=== PATIENT | male | born 1965 | race Caucasian/White ===

== ENCOUNTER → 2017-03-31 | Outpatient (CLI) | payer OTHER ==
[2017-03-31 15:04] LABS: Blood Urea Nitrogen 27 mg/dL (9-20)
--- NOTE | 2017-03-31 15:49 | CT ---
EXAMINATION TYPE: CT abdomen wo/w con DATE OF EXAM: 03/31/2017 COMPARISON: NONE HISTORY: 52-year-old male with hematuria. TECHNIQUE: Contiguous axial scanning of the abdomen before and after administration of 100 ml Omnipaq ue 300 IV contrast. Delayed images through the kidneys and coronal/sagittal reconstructions performe d. CT DLP: 1836.3 mGycm Automated exposure control for dose reduction was used. FINDINGS: Heart normal size without pericardial effusion. Minimal strandy inferior lingular atelectasis and mil d strandy posterior right basilar atelectasis. No pleural effusion. No evidence for fatty infiltration of the liver. No focal liver lesion or biliary ductal dilatation. Portal venous system is patent. Gallbladder, adrenal glands, spleen, and pancreas appear within normal limits. Punctate 1 mm nonobstructive calculus mid to lower pole right kidney. Symmetric uptake and excretion of contrast from both kidneys. No suspicious renal lesion on either side. No dilated small bowel, free fluid, or free air. Normal appendix. Mild stool burden without pericolonic inflammatory change. 8 mm mik hepatic lymph node nonspecific, likely reactive. Otherwise, no mesenteric or retroperitone al lymphadenopathy. Bones: No osseous destructive process. IMPRESSION: PUNCTATE 1 MM NONOBSTRUCTIVE RIGHT RENAL CALCULUS. NO SUSPICIOUS RENAL LESION OR HYDRONEPHROSIS.
== END | disposition home or self-care (01) ==
LOC: RADCTMAIN 14:20
PROVIDERS: ATTEND Family Medicine
DX: N20.0 Calculus of kidney (principal); Z88.0 Allergy status to penicillin
CPT/HCPCS: 82565; 84520; 74170; 36415; Q9967

== ENCOUNTER → 2017-04-27 | Outpatient (CLI) | payer OTHER ==
--- NOTE | 2017-04-27 17:33 | CT ---
EXAMINATION TYPE: CT abdomen pelvis wo con DATE OF EXAM: 04/27/2017 COMPARISON: Previous exam 03/31/2017 CT abdomen HISTORY: Bilateral flank pain and hematuria. CT DLP: 1105 mGycm Automated exposure control for dose reduction was used. TECHNIQUE: Helical acquisition of images from the lung bases through the pelvis. FINDINGS: Lack of contrast could compromise sensitivity LUNG BASES: No significant abnormality is appreciated. AORTA: No significant abnormality is appreciataed. LIVER/GB: No significant abnormality is appreciated. PANCREAS: No significant abnormality is seen. SPLEEN: No significant abnormality is seen. ADRENALS: No significant abnormality is seen. KIDNEYS: Punctate calcification compatible with nonobstructive calculus within the right kidney is ag ain noted there is no evident ureteral calcification bilaterally, no hydronephrosis. REPRODUCTIVE ORGANS: There is some calcification associated with the prostate gland, somewhat nodula r appearance is noted anteriorly URINARY BLADDER: Shows a thickened wall. BOWEL: No significant abnormality is seen. FREE AIR: No Free Air is visible. ASCITES: None visible. PELVIC ADENOPATHY: None visualized. RETROPERITONEAL ADENOPATHY: No Retroperitoneal Adenopathy visible. OSSEOUS STRUCTURES: No significant abnormality is seen. Right inguinal hernia containing fat is suspected greater than on the left. IMPRESSION: NONOBSTRUCTIVE RIGHT RENAL CALCULUS. BLADDER WALL THICKENING COULD BE DUE TO CHRONIC OUTLET OBSTRUCTI ON. FINDINGS SUSPICIOUS FOR PROSTATE NODULE. NONCONTRAST EXAM.
== END | disposition home or self-care (01) ==
LOC: RADCTMAIN 16:01
PROVIDERS: ATTEND Urology
DX: N20.0 Calculus of kidney (principal); N32.89 Other specified disorders of bladder
CPT/HCPCS: 74176

== ENCOUNTER 2017-10-01 10:50 | Emergency (ER) | payer BC, OTHER ==
[2017-10-01] MEDS ORDERED: ASPIRIN 325 MG TAB PO STA (11:36)
[2017-10-01] MEDS ORDERED: BENZONATATE 100 MG CAP PO STA (11:36)
[2017-10-01] MEDS ORDERED: methylPREDNISolone SOD SUCCI 125 MG/2 ML VIAL IV STA (11:37)
[2017-10-01] MEDS ORDERED: SODIUM CHLORIDE 0.9% 1,000 ML IV ONE (11:37)
[2017-10-01] MEDS ORDERED: KETOROLAC 30 MG/ML 1 ML VIAL IVP STA (11:37)
[2017-10-01] MEDS ORDERED: IPRATROPIUM-ALBUTEROL 3 ML NEB INHALATION STA (11:37)
--- NOTE | 2017-10-01 11:40 | ED ---
General Adult HPI - General Chief complaint: Shortness of Breath Stated complaint: Difficulty Breathing Time Seen by Provider: 10/01/17 11:24 Source: patient Mode of arrival: ambulatory Limitations: no limitations - History of Present Illness Initial comments: 52-year-old male presenting with 2 weeks of productive cough, chest pain, subjective fevers, and hoarse voice. He states he saw his physician on Monday placed on an antibiotic for 10 days. He states he has been taking up his symptoms do not improve. States he is having posttussive emesis worsening substernal chest pain that radiates around to his sides when he coughs. Patient denies history of COPD but states he is an active smoker. Denies history of DVT PE, active cancer, recent surgeries, prolonged immobilization. - Related Data Previous Rx's Medication Instructions Recorded Albuterol Inhaler [Ventolin Hfa 1 - 2 puff INHALATION Q6HR PRN #1 10/01/17 Inhaler] inhaler Benzonatate [Tessalon Perles] 200 mg PO Q6HR PRN #20 capsule 10/01/17 predniSONE [Deltasone] 40 mg PO DAILY 5 Days #5 tablet 10/01/17 Allergies Allergy/AdvReac Type Severity Reaction Status Date / Time ketchup Allergy Unknown Verified 10/01/17 11:14 Penicillins Allergy Unknown Verified 10/01/17 11:14 Review of Systems ROS Statement: Those systems with pertinent positive or pertinent negative responses have been documented in the HPI. Review of Systems Constitutional: Denies fever, chills Eyes: Denies change in vision, Denies pain Ears, nose, mouth, throat: Denies headaches, Denies sore throat Cardiovascular: Positive chest pain. Denies palpitations Respiratory: Positive shortness of breath, Positive cough Gastrointestinal: Denies abdominal pain. Denies nausea, vomiting, diarrhea. Genitourinary: Denies hematuria, Denies infections Musculoskeletal: Denies pain, Denies swelling Integumentary: Denies rash Neurological: Denies headache, focal weakness, focal numbness Psychiatric: Denies anxiety, Denies depression Hematologic/Lymphatic: Denies easy bleeding or bruising ROS Other: All systems not noted in ROS Statement are negative. Past Medical History Past Medical History: Coronary Artery Disease (CAD), Diabetes Mellitus, Hyperlipidemia, Hypertension, Myocardial Infarction (non Q-wave) History of Any Multi-Drug Resistant Organisms: None Reported Past Surgical History: Orthopedic Surgery Past Psychological History: No Psychological Hx Reported Smoking Status: Current every day smoker Past Alcohol Use History: None Reported Past Drug Use History: None Reported General Exam - General Exam Comments Initial Comments: General: Awake, alert, No acute Distress HENT: Normocephalic. Atraumatic. Erythematous oropharnyx without exudate. Eyes: PERRL. EOMI. No scleral icterus. No injected conjunctiva Neck: Full ROM Chest/Lungs: Diffuse wheezes bilaterally Cardiac: Regular rate, rhythm. No murmurs or rubs Abdomen/GI: [Soft, nontender, nondistended. No rebound, guarding, or rigidity. Musculoskeletal: Full ROM Skin: Warm, dry, intact Neurologic: A/Ox3, no weakness, no sensory deficit, no abdnormal gait, no coordination deficit Limitations: no limitations Course Vital Signs 10/01/17 10/01/17 10/01/17 11:10 12:21 12:30 Temperature 98.7 F Pulse Rate 77 78 80 Respiratory 22 Rate Blood Pressure 134/76 O2 Sat by Pulse 97 Oximetry 10/01/17 13:46 Temperature 98.2 F Pulse Rate 69 Respiratory 18 Rate Blood Pressure 133/83 O2 Sat by Pulse 94 L Oximetry Medical Decision Making - Medical Decision Making 52-year-old male presenting with shortness of breath, cough, subjective fevers. Initial exam the patient is awake, alert, no acute distress. VSS. Patient has diffuse wheezing. Patient has no history of DVT PE, risk factors, lower extremity swelling, nor is he tachycardic or hypoxic. Patient's clinical presentation consistent with acute bronchitis and COPD exacerbation as the patient is a current smoker. Patient's pain only occurs while he is coughing at this time is not suggestive of something more serious such as ACS. Troponin is negative. Heart score 3. EKG showed normal sinus rhythm at a rate of [address] segment elevation or depression. Patient's symptoms improved while in department. He was instructed to continue taking his antibiotics prescribed by his primary care physician.No further emergent workup indicated. The patient was given return to ED instructions. They were instructed to follow up with their primary care provider. Stable for discharge at this time. - Lab Data Result diagrams: 10/01/17 12:12 10/01/17 12:12 Lab Results 0710/01/17 10/01/17 Range/Units 12:12 12:12 12:12 WBC 8.2 (3.8-10.6) k/uL RBC 5.30 (4.30-5.90) m/uL Hgb 16.2 (13.0-17.5) gm/dL Hct 46.5 (39.0-53.0) % MCV 87.7 (80.0-100.0) fL MCH 30.5 (25.0-35.0) pg MCHC 34.8 (31.0-37.0) g/dL RDW 13.5 (11.5-15.5) % Plt Count 262 (150-450) k/uL Neutrophils % 67 % Lymphocytes % 19 % Monocytes % 9 % Eosinophils % 3 % Basophils % 1 % Neutrophils # 5.5 (1.3-7.7) k/uL Lymphocytes # 1.5 (1.0-4.8) k/uL Monocytes # 0.7 (0-1.0) k/uL Eosinophils # 0.2 (0-0.7) k/uL Basophils # 0.1 (0-0.2) k/uL Sodium 140 (137-145) mmol/L Potassium 4.9 (3.5-5.1) mmol/L Chloride 106 (98-107) mmol/L Carbon Dioxide 27 (22-30) mmol/L Anion Gap 7 mmol/L BUN 15 (9-20) mg/dL Creatinine 0.69 (0.66-1.25) mg/dL Est GFR (CKD-EPI)AfAm >90 (>60 ml/min/1.73 sqM) Est GFR (CKD-EPI)NonAf >90 (>60 ml/min/1.73 sqM) Glucose 145 H (74-99) mg/dL Calcium 9.6 (8.4-10.2) mg/dL Troponin I (0.000-0.034) ng/mL NT-Pro-B Natriuret Pep 176 pg/mL 10/01/17 Range/Units 12:12 WBC (3.8-10.6) k/uL RBC (4.30-5.90) m/uL Hgb (13.0-17.5) gm/dL Hct (39.0-53.0) % MCV (80.0-100.0) fL MCH (25.0-35.0) pg MCHC (31.0-37.0) g/dL RDW (11.5-15.5) % Plt Count (150-450) k/uL Neutrophils % % Lymphocytes % % Monocytes % % Eosinophils % % Basophils % % Neutrophils # (1.3-7.7) k/uL Lymphocytes # (1.0-4.8) k/uL Monocytes # (0-1.0) k/uL Eosinophils # (0-0.7) k/uL Basophils # (0-0.2) k/uL Sodium (137-145) mmol/L Potassium (3.5-5.1) mmol/L Chloride (98-107) mmol/L Carbon Dioxide (22-30) mmol/L Anion Gap mmol/L BUN (9-20) mg/dL Creatinine (0.66-1.25) mg/dL Est GFR (CKD-EPI)AfAm (>60 ml/min/1.73 sqM) Est GFR (CKD-EPI)NonAf (>60 ml/min/1.73 sqM) Glucose (74-99) mg/dL Calcium (8.4-10.2) mg/dL Troponin I <0.012 (0.000-0.034) ng/mL NT-Pro-B Natriuret Pep pg/mL Disposition Clinical Impression: Acute exacerbation of chronic obstructive airways disease Disposition: HOME SELF-CARE Condition: Good Instructions: Acute Bronchitis (ED), Chronic Bronchitis (ED) Prescriptions: Albuterol Inhaler [Ventolin Hfa Inhaler] 1 - 2 puff INHALATION Q6HR PRN #1 inhaler PRN Reason: Shortness Of Breath Or Wheezing Benzonatate [Tessalon Perles] 200 mg PO Q6HR PRN #20 capsule PRN Reason: Cough predniSONE [Deltasone] 40 mg PO DAILY 5 Days #5 tablet Is patient prescribed a controlled substance at d/c from ED?: No
[2017-10-01 12:31] LABS: Basophils # (A) 0.1 k/uL (0-0.2); Basophils % (A) 1 %; Eosinophils # (A) 0.2 k/uL (0-0.7); Eosinophils % (A) 3 %; HCT 46.5 % (39.0-53.0); HGB 16.2 gm/dL (13.0-17.5); Lymphocytes # (A) 1.5 k/uL (1.0-4.8); Lymphocytes % (A) 19 %; MCH 30.5 pg (25.0-35.0); MCHC 34.8 g/dL (31.0-37.0); MCV 87.7 fL (80.0-100.0); Mean Platelet Volume 7.4; Monocytes # (A) 0.7 k/uL (0-1.0); Monocytes % (A) 9 %; Neutrophils # (A) 5.5 k/uL (1.3-7.7); Neutrophils % (A) 67 %; Platelet Count 262 k/uL (150-450); RDW 13.5 % (11.5-15.5); WBC 8.2 k/uL (3.8-10.6)
[2017-10-01 12:36] LABS: Anion Gap 7 mmol/L; Calcium 9.6 mg/dL (8.4-10.2); Carbon Dioxide 27 mmol/L (22-30); Chloride 106 mmol/L (98-107); Glucose 145 mg/dL (74-99); Sodium 140 mmol/L (137-145)
[2017-10-01 12:38] LABS: Blood Urea Nitrogen 15 mg/dL (9-20); Potassium 4.9 mmol/L (3.5-5.1)
--- NOTE | 2017-10-01 13:28 | XR ---
EXAMINATION TYPE: XR chest 2V DATE OF EXAM: 10/01/2017 HISTORY: Pain. REFERENCE: NONE. FINDINGS: The lungs are clear. Pleural space are clear. The heart is not enlarged. IMPRESSION: NO ACUTE CARDIOPULMONARY ABNORMALITY.
[2017-10-01 13:49] VITALS: RESP 18
[2017-10-01 14:52] VITALS: BP 143/87; PULSE 79; TEMP 98.3
== END 2017-10-01 14:52 | disposition home or self-care (01) ==
LOC: EC 10:50
DX: J44.1 Chronic obstructive pulmonary disease with (acute) exacerbation (principal); I25.10 Atherosclerotic heart disease of native coronary artery without angina pectoris; E11.9 Type 2 diabetes mellitus without complications; E78.5 Hyperlipidemia, unspecified; I10 Essential (primary) hypertension; I25.2 Old myocardial infarction; F17.200 Nicotine dependence, unspecified, uncomplicated; Z88.0 Allergy status to penicillin; Z91.018 Allergy to other foods
CPT/HCPCS: 36415; 94640; 93005; 83880; 80048; 84484; 85025; 71046; 99285; 96374; 96375; 96361; J2930; J1885

== ENCOUNTER 2019-04-25 14:46 | Emergency (ER) | payer BC, OTHER ==
[2019-04-25 14:49] VITALS: BP 153/96; PULSE 97; RESP 16; TEMP 97.4
--- NOTE | 2019-04-25 15:00 | ED ---
Skin/Abscess/FB HPI - General Chief complaint: Skin/Abscess/Foreign Body Stated complaint: infection in hand Time Seen by Provider: 04/25/19 14:50 Source: patient, RN notes reviewed Mode of arrival: ambulatory Limitations: no limitations - History of Present Illness Initial comments: 54-year-old male presents emergency department Department with chief complaint of right hand injury. Patient is approximately one week ago he pinched in a snowblower states that it was small open wound states there was nothing worrisome. Patient states recently last 3-4 days she's had increased swelling, redness. Patient states he has full range of motion of all digits no fevers or chills no pain in his forearm. - Related Data Previous Rx's Medication Instructions Recorded Albuterol Inhaler [Ventolin Hfa 1 - 2 puff INHALATION Q6HR PRN #1 10/01/17 Inhaler] inhaler Benzonatate [Tessalon Perles] 200 mg PO Q6HR PRN #20 capsule 10/01/17 predniSONE [Deltasone] 40 mg PO DAILY 5 Days #5 tablet 10/01/17 Cephalexin [Keflex] 500 mg PO Q6HR #40 cap 04/25/19 Ibuprofen [Motrin] 600 mg PO Q8HR PRN #30 tab 04/25/19 Sulfamethox-Tmp 800-160Mg [Bactrim 1 each PO Q12HR #20 tab 04/25/19 Ds] Allergies Allergy/AdvReac Type Severity Reaction Status Date / Time ketchup Allergy Unknown Verified 04/25/19 14:49 Penicillins Allergy Unknown Verified 04/25/19 14:49 Review of Systems ROS Statement: Those systems with pertinent positive or pertinent negative responses have been documented in the HPI. ROS Other: All systems not noted in ROS Statement are negative. Past Medical History Past Medical History: Coronary Artery Disease (CAD), Diabetes Mellitus, Hyperlipidemia, Hypertension, Myocardial Infarction (non Q-wave) History of Any Multi-Drug Resistant Organisms: None Reported Past Surgical History: Orthopedic Surgery Past Psychological History: No Psychological Hx Reported Smoking Status: Current every day smoker Past Alcohol Use History: None Reported Past Drug Use History: None Reported General Exam Limitations: no limitations General appearance: alert, in no apparent distress Head exam: Present: atraumatic, normocephalic, normal inspection Eye exam: Present: normal appearance, PERRL, EOMI. Absent: scleral icterus, conjunctival injection, periorbital swelling Respiratory exam: Present: normal lung sounds bilaterally. Absent: respiratory distress, wheezes, rales, rhonchi, stridor Cardiovascular Exam: Present: regular rate, normal rhythm, normal heart sounds. Absent: systolic murmur, diastolic murmur, rubs, gallop, clicks Extremities exam: Present: other (Right hand there is moderate swelling, erythema between the first and second digit on the dorsal aspect, there is small abrasion over the third MCP region there is tenderness with palpation to the dorsal aspect of the hand there is no tenderness of the mid forearm no epitrochlear or axilla lymph nodes palpable) Neurological exam: Present: alert Skin exam: Present: warm, dry, intact, normal color. Absent: rash Course Vital Signs 04/25/19 14:47 Temperature 97.4 F L Pulse Rate 97 Respiratory 16 Rate Blood Pressure 153/96 O2 Sat by Pulse 96 Oximetry Procedures - Incision & Drainage Consent Obtained: verbal consent Site: hand (Right hand) Size (cm): 2 I&D Cleaning Method: Alcohol Wipe Sterile Field Used?: No Needle Aspiration Performed?: Yes Irrigation Performed?: No I&D Drainage Obtained: Pus, Blood Culture Obtained?: Yes Patient Tolerated Procedure: well, no complications Medical Decision Making - Medical Decision Making 54-year-old presented for right hand pain, swelling or there is evidence of cellulitis changes. There is small mild purulent drainage removed. Patient's x-ray does not show any acute findings. Patient we discharged on antibiotics with close follow-up. Disposition Clinical Impression: Cellulitis of right hand Disposition: HOME SELF-CARE Condition: Stable Instructions (If sedation given, give patient instructions): Cellulitis (ED) Additional Instructions: Please return to the Emergency Department if symptoms worsen or any other concerns. Prescriptions: Sulfamethox-Tmp 800-160Mg [Bactrim Ds] 1 each PO Q12HR #20 tab Cephalexin [Keflex] 500 mg PO Q6HR #40 cap Ibuprofen [Motrin] 600 mg PO Q8HR PRN #30 tab PRN Reason: Pain Is patient prescribed a controlled substance at d/c from ED?: No Referrals: Tom Cooper MD [Primary Care Provider] - 1-2 days Time of Disposition: 15:19
[2019-04-25] MEDS ORDERED: traMADol 50 MG STARTER PACK 3 TAB BTL PO STA (15:16)
--- NOTE | 2019-04-25 15:20 | XR ---
EXAMINATION TYPE: XR hand complete RT DATE OF EXAM: 04/25/2019 CLINICAL HISTORY: Right hand pain and swelling with laceration to the thumb. TECHNIQUE: Frontal, lateral and oblique images of the right hand are obtained. COMPARISON: None. FINDINGS: There is no acute fracture/dislocation evident in the right hand. The joint spaces in the right hand appear aligned with minimal degenerative change demonstrated as osseous hypertrophic nettles e at the distal interphalangeal joints and first carpometacarpal joint. Subcortical cyst of the dista l ulna.. No radiopaque foreign body. The overlying soft tissue appears unremarkable. IMPRESSION: There is no acute fracture or dislocation in the right hand. No radiopaque foreign jeni s.
== END 2019-04-25 15:50 | disposition home or self-care (01) ==
LOC: EC 14:46
DX: L03.113 Cellulitis of right upper limb (principal); I25.10 Atherosclerotic heart disease of native coronary artery without angina pectoris; E11.9 Type 2 diabetes mellitus without complications; I10 Essential (primary) hypertension; I25.2 Old myocardial infarction; F17.200 Nicotine dependence, unspecified, uncomplicated; Z88.0 Allergy status to penicillin; Z91.018 Allergy to other foods
CPT/HCPCS: 10160; 87070; 87077; 87186; 87205; 99283

== ENCOUNTER 2020-01-15 21:46 | Inpatient (IN) | payer OTHER ==
[2020-01-15] MEDS ORDERED: MORPHINE SULFATE 4 MG/ML SYRINGE IV STA (22:19)
[2020-01-15] MEDS ORDERED: SODIUM CHLORIDE 0.9% 500 ML 500 ML IV STA (22:19)
[2020-01-15 22:37] LABS: Basophils # (A) 0.1 k/uL (0-0.2); Basophils % (A) 1 %; Eosinophils # (A) 0.1 k/uL (0-0.7); Eosinophils % (A) 1 %; HCT 46.8 % (39.0-53.0); HGB 15.6 gm/dL (13.0-17.5); Lymphocytes # (A) 1.1 k/uL (1.0-4.8); Lymphocytes % (A) 12 %; MCH 29.2 pg (25.0-35.0); MCHC 33.3 g/dL (31.0-37.0); MCV 87.6 fL (80.0-100.0); Mean Platelet Volume 8.1; Monocytes # (A) 0.7 k/uL (0-1.0); Monocytes % (A) 8 %; Neutrophils % (A) 76 %; Platelet Count 244 k/uL (150-450); RBC 5.34 m/uL (4.30-5.90); RDW 12.3 % (11.5-15.5); WBC 9.1 k/uL (3.8-10.6)
[2020-01-15 22:38] LABS: Appearance,Urine Clear (Clear); Bilirubin,Urine Negative (Negative); Blood,Urine Negative (Negative); Color,Urine Colorless; Glucose,Urine (UA) 4+ (Negative); Ketones,Urine Negative (Negative); Leukocyte Esterase,Urine Negative (Negative); Nitrite,Urine Negative (Negative); Protein,Urine Negative (Negative); Specific Gravity,Urine 1.008 (1.001-1.035); Urobilinogen,Urine <2.0 mg/dL (<2.0)
--- NOTE | 2020-01-15 22:40 | ED ---
Abdominal Pain HPI - General Chief Complaint: Abdominal Pain Stated Complaint: back & abd pain Time Seen by Provider: 01/15/20 22:01 Source: patient Mode of arrival: ambulatory Limitations: no limitations - History of Present Illness Initial Comments: this patient is a 55-year-old man who presents with left flank pain that radiates to the groin. He states this beengoing on for couple of days but much worse tonight. He has not discovered worsening or relieving factors. He does feel as if she needs to urinate very frequently. He has not noted any blood. The patient also feeling nausea but has not vomited. No change in bowel movements -: days(s) Severity: severe Quality: sharp Consistency: constant Improves With: nothing Worsens With: nothing - Related Data Previous Rx's Medication Instructions Recorded ALPRAZolam [Xanax] 0.25 mg PO BID PRN 3 Days #6 tab 01/17/20 DULoxetine HCL [Cymbalta] 60 mg PO DAILY #30 cap 01/17/20 INSULIN ASPART (NovoLOG) [NovoLOG 5 unit SQ AC-TID #5 vial 01/17/20 (formulary)] Insulin Glargine,Hum.rec.anlog 15 unit SQ DAILY #5 pen 01/17/20 [Lantus Solostar] Magnesium Oxide 400 mg PO DAILY #30 tablet 01/17/20 Tamsulosin [Flomax] 0.4 mg PO DAILY #30 cap.er.24h 01/17/20 Allergies Allergy/AdvReac Type Severity Reaction Status Date / Time ketchup Allergy Unknown Verified 01/15/20 23:15 Penicillins Allergy Unknown Verified 01/15/20 23:15 Review of Systems ROS Statement: Those systems with pertinent positive or pertinent negative responses have been documented in the HPI. ROS Other: All systems not noted in ROS Statement are negative. Constitutional: Denies: fever, chills Respiratory: Denies: cough, dyspnea Cardiovascular: Denies: chest pain, palpitations, edema Gastrointestinal: Reports: as per HPI, abdominal pain, nausea. Denies: vomiting, diarrhea, constipation Genitourinary: Reports: urgency, frequency, testicular pain. Denies: dysuria, hematuria, discharge Musculoskeletal: Reports: back pain Skin: Denies: rash Neurological: Denies: headache, weakness, numbness Past Medical History Past Medical History: Coronary Artery Disease (CAD), Diabetes Mellitus, Hyperlipidemia, Hypertension, Myocardial Infarction (non Q-wave) History of Any Multi-Drug Resistant Organisms: None Reported Past Surgical History: Orthopedic Surgery Past Psychological History: No Psychological Hx Reported Smoking Status: Current every day smoker Past Alcohol Use History: None Reported Past Drug Use History: None Reported General Exam Limitations: no limitations General appearance: alert, in no apparent distress Head exam: Present: atraumatic, normocephalic Eye exam: Present: normal appearance. Absent: scleral icterus, conjunctival injection ENT exam: Present: normal oropharynx Neck exam: Present: normal inspection, full ROM Respiratory exam: Present: normal lung sounds bilaterally. Absent: respiratory distress, wheezes, rales, rhonchi, stridor Cardiovascular Exam: Present: regular rate, normal rhythm, normal heart sounds. Absent: systolic murmur, diastolic murmur, rubs, gallop GI/Abdominal exam: Present: soft, tenderness, guarding. Absent: distended, r ebound, rigid, mass, pulsatile mass, hernia exam: Present: normal inspection, vertical testicular lie, circumcision. Absent: testicular tenderness, urethral discharge, scrotal swelling Extremities exam: Present: normal inspection, normal capillary refill. Absent: pedal edema, calf tenderness Back exam: Present: normal inspection. Absent: CVA tenderness (R), CVA tenderness (L) Neurological exam: Present: alert Skin exam: Present: warm, dry, intact, normal color. Absent: rash Course Vital Signs 01/15/20 01/15/20 01/15/20 21:47 22:31 23:27 Temperature 98.3 F Pulse Rate 94 89 Pulse Rate [ 91 Pulse Oximetery ] Respiratory 20 18 17 Rate Blood Pressure 155/90 141/97 Blood Pressure 142/101 [Left Arm] Blood Pressure 149/101 [Right Arm] O2 Sat by Pulse 96 96 96 Oximetry 01/15/20 01/16/20 01/16/20 23:53 00:43 01:14 Temperature 99.1 F Pulse Rate 86 86 94 Pulse Rate [ Pulse Oximetery ] Respiratory 18 18 18 Rate Blood Pressure 135/86 161/91 176/83 Blood Pressure [Left Arm] Blood Pressure [Right Arm] O2 Sat by Pulse 93 L 95 96 Oximetry 01/16/20 01:49 Temperature 97.6 F Pulse Rate Pulse Rate [ 86 Pulse Oximetery ] Respiratory 16 Rate Blood Pressure Blood Pressure [Left Arm] Blood Pressure 139/84 [Right Arm] O2 Sat by Pulse 99 Oximetry - Reevaluation(s) Reevaluation #1: 01/15/20 22:39 patient's 55-year-old man here to be evaluated for flank pain that radiates to the testicle. When I entered the room, he is sleeping comfortably. When the patient is noticed by his he began to writhe on the bed, then got up to go and urinate. Medical Decision Making - Lab Data Result diagrams: 01/15/20 22:25 01/17/20 03:55 Lab Results 01/15/20 01/15/20 01/15/20 Range/Units 22:25 22:25 22:25 WBC 9.1 (3.8-10.6) k/uL RBC 5.34 (4.30-5.90) m/uL Hgb 15.6 (13.0-17.5) gm/dL Hct 46.8 (39.0-53.0) % MCV 87.6 (80.0-100.0) fL MCH 29.2 (25.0-35.0) pg MCHC 33.3 (31.0-37.0) g/dL RDW 12.3 (11.5-15.5) % Plt Count 244 (150-450) k/uL Neutrophils % 76 % Lymphocytes % 12 % Monocytes % 8 % Eosinophils % 1 % Basophils % 1 % Neutrophils # 7.0 (1.3-7.7) k/uL Lymphocytes # 1.1 (1.0-4.8) k/uL Monocytes # 0.7 (0-1.0) k/uL Eosinophils # 0.1 (0-0.7) k/uL Basophils # 0.1 (0-0.2) k/uL Sodium 128 L (137-145) mmol/L Potassium 4.6 (3.5-5.1) mmol/L Chloride 97 L (98-107) mmol/L Carbon Dioxide 24 (22-30) mmol/L Anion Gap 7 mmol/L BUN 24 H (9-20) mg/dL Creatinine 1.96 H (0.66-1.25) mg/dL Est GFR (CKD-EPI)AfAm 43 (>60 ml/min/1.73 sqM) Est GFR (CKD-EPI)NonAf 37 (>60 ml/min/1.73 sqM) Glucose 589 H* (74-99) mg/dL POC Glucose (mg/dL) (75-99) mg/dL POC Glu Farm Owner Operator ID Plasma Lactic Acid Sarabjit (0.7-2.0) mmol/L Calcium 9.1 (8.4-10.2) mg/dL Total Bilirubin 0.7 (0.2-1.3) mg/dL AST 20 (17-59) U/L ALT 18 (4-49) U/L Alkaline Phosphatase 142 H (38-126) U/L Troponin I (0.000-0.034) ng/mL Total Protein 6.3 (6.3-8.2) g/dL Albumin 3.6 (3.5-5.0) g/dL Amylase 70 (30-110) U/L Lipase 361 H (23-300) U/L Urine Color Colorless Urine Appearance Clear (Clear) Urine pH 5.0 (5.0-8.0) Ur Specific [place] 1.008 (1.001-1.035) Urine Protein Negative (Negative) Urine Glucose (UA) 4+ H (Negative) Urine Ketones Negative (Negative) Urine Blood Negative (Negative) Urine Nitrite Negative (Negative) Urine Bilirubin Negative (Negative) Urine Urobilinogen <2.0 (<2.0) mg/dL Ur Leukocyte Esterase Negative (Negative) 01/15/20 01/15/20 01/16/20 Range/Units 22:25 22:25 00:59 WBC (3.8-10.6) k/uL RBC (4.30-5.90) m/uL Hgb (13.0-17.5) gm/dL Hct (39.0-53.0) % MCV (80.0-100.0) fL MCH (25.0-35.0) pg MCHC (31.0-37.0) g/dL RDW (11.5-15.5) % Plt Count (150-450) k/uL Neutrophils % % Lymphocytes % % Monocytes % % Eosinophils % % Basophils % % Neutrophils # (1.3-7.7) k/uL Lymphocytes # (1.0-4.8) k/uL Monocytes # (0-1.0) k/uL Eosinophils # (0-0.7) k/uL Basophils # (0-0.2) k/uL Sodium (137-145) mmol/L Potassium (3.5-5.1) mmol/L Chloride (98-107) mmol/L Carbon Dioxide (22-30) mmol/L Anion Gap mmol/L BUN (9-20) mg/dL Creatinine (0.66-1.25) mg/dL Est GFR (CKD-EPI)AfAm (>60 ml/min/1.73 sqM) Est GFR (CKD-EPI)NonAf (>60 ml/min/1.73 sqM) Glucose (74-99) mg/dL POC Glucose (mg/dL) 431 H (75-99) mg/dL POC Glu Farm Owner Operator ID [place] Plasma Lactic Acid Sarabjit 1.3 (0.7-2.0) mmol/L Calcium (8.4-10.2) mg/dL Total Bilirubin (0.2-1.3) mg/dL AST (17-59) U/L ALT (4-49) U/L Alkaline Phosphatase (38-126) U/L Troponin I 0.024 (0.000-0.034) ng/mL Total Protein (6.3-8.2) g/dL Albumin (3.5-5.0) g/dL Amylase (30-110) U/L Lipase (23-300) U/L Urine Color Urine Appearance (Clear) Urine pH (5.0-8.0) Ur Specific [place] (1.001-1.035) Urine Protein (Negative) Urine Glucose (UA) (Negative) Urine Ketones (Negative) Urine Blood (Negative) Urine Nitrite (Negative) Urine Bilirubin (Negative) Urine Urobilinogen (<2.0) mg/dL Ur Leukocyte Esterase (Negative) - EKG Data -: EKG Interpreted by Ms EKG shows normal: intervals (QRS duration 160 ms, consistent with paced rhythm. QTC 507 ms. ) Rate: normal (rate 82 bpm) Interpretation: other (the underlying rhythm appears to be ventricular paced rhythm with PVC) Disposition Clinical Impression: Acute kidney injury, Urinary retention, Hyperglycemia due to diabetes mellitus Disposition: ADMITTED IP TO THIS [facility] Condition: Fair
[2020-01-15 22:48] LABS: Albumin 3.6 g/dL (3.5-5.0); Calcium 9.1 mg/dL (8.4-10.2); Potassium 4.6 mmol/L (3.5-5.1); Total Bilirubin 0.7 mg/dL (0.2-1.3); Total Protein 6.3 g/dL (6.3-8.2)
[2020-01-15] MEDS ORDERED: INSULIN REGULAR 100 UNIT/ML VIAL SQ STA (23:11)
--- NOTE | 2020-01-15 23:26 | CT ---
EXAMINATION TYPE: CT abdomen pelvis wo con DATE OF EXAM: 01/15/2020 COMPARISON: 04/27/2017 HISTORY: abd and groin pain CT DLP: 631.9 mGycm Automated exposure control for dose reduction was used. Lung bases are clear. There is no pleural effusion. Heart size is normal. There is no pericardial eff usion. Liver spleen stomach pancreas gallbladder appear normal. Bile ducts are not dilated. There is no adrenal mass. Kidneys have normal size. There is bilateral hydronephrosis and hydroureter . I see no definite ureteral calculus. There is markedly dilated urinary bladder. Bladder measures 24 cm in length. Bladder extends up to the L3 level. There is no free fluid in the pelvis. There is lien ateral inguinal hernias that contain fat. Appendix is posterior and appears normal. There is no mesen teric edema. There is no ascites. There is no free air. There is distended gas-filled large bowel. Th ere is no evidence of free air. There is no ascites. Lumbar vertebra have normal alignment. There is no compression fracture. Posterior elements are intac t. Bony pelvis is intact. Hip joints are intact. IMPRESSION: Bilateral moderate hydronephrosis and hydroureter with markedly dilated urinary bladder. Hydronephros is probably related to chronic bladder outlet obstruction. Obstruction is new compared to old exam. Normal appendix. Mild large bowel ileus.
[2020-01-16] MEDS ORDERED: SODIUM CHLORIDE 0.9% 1,000 ML IV ONE ×2 (00:14→00:23)
[2020-01-16 01:01] LABS: Glucose,Whole Blood 431 mg/dL (75-99)
[2020-01-16] MEDS ORDERED: MORPHINE SULFATE 4 MG/ML SYRINGE IVP STA (01:13)
[2020-01-16] MEDS ORDERED: NALOXONE 0.4 MG/ML 1 ML VIAL IV PRN (01:19)
[2020-01-16] MEDS ORDERED: ACETAMINOPHEN TAB 325 MG TAB PO PRN (01:19)
[2020-01-16] MEDS ORDERED: ONDANSETRON 4 MG/2 ML VIAL IVP PRN (01:19)
[2020-01-16] MEDS ORDERED: SODIUM CHLORIDE 0.9% 1,000 ML IV SCH (01:30)
[2020-01-16 09:52] LABS: Glucose,Whole Blood 330 mg/dL (75-99)
[2020-01-16] MEDS: NICOTINE 21MG/24HR PATCH TRANSDERM SCH (10:46)
[2020-01-16 11:50] LABS: Glucose,Whole Blood 263 mg/dL (75-99)
--- NOTE | 2020-01-16 12:20 | P.NPCON ---
History of Present Illness - Reason for Consult acute renal failure - History of Present Illness Reason for consultation: Acute kidney injury History of present illness: Patient is a 55-year-old male seen in renal consultation for acute kidney injury. Patient's creatinine in September 2017 was 0.69 and this admission was 1.96. No other records available. Patient presented to the hospital due to difficulty with urination. Patient states the tingling over the last 1 week or so. He has the urge to void but only dribbles. Junior catheter was inserted in the ER and he was noted to have significant urinary retention. His urine output in the last 24 hours has been over 5 L. Denies hematuria or dysuria. No fever or chills. No vomiting or diarrhea. Appetite is fair. Denies use of nonsteroidals. Patient's blood sugar was 589 at admission. Patient states he was on metformin and glipizide at home but stopped taking them about a month ago. He has not been taking any medications for his diabetes. Blood pressure stable. He does feel thirsty. Denies family history of renal disease. Patient states he did have bladder tumors that were removed a few years ago. CT of the abdomen and pelvis did reveal bilateral hydronephrosis. Vital signs are stable. General: The patient appeared well nourished and normally developed. HEENT: Head exam is unremarkable. Neck is without jugular venous distension. LUNGS: Lungs are clear to auscultation and percussion. Breath sounds decreased. HEART: Rate and Rhythm are regular. ABDOMEN: Soft, nontender. EXTREMITITES: No clubbing, cyanosis, or edema. Past Medical History Past Medical History: Coronary Artery Disease (CAD), Diabetes Mellitus, Hyperlipidemia, Hypertension History of Any Multi-Drug Resistant Organisms: None Reported Past Surgical History: Orthopedic Surgery Past Psychological History: No Psychological Hx Reported Smoking Status: Current every day smoker Past Alcohol Use History: None Reported Past Drug Use History: None Reported Medications and Allergies Home Medications Medication Instructions Recorded Confirmed Type No Known Home Medications 01/15/20 01/15/20 History Allergies Allergy/AdvReac Type Severity Reaction Status Date / Time ketchup Allergy Unknown Verified 01/15/20 23:15 Penicillins Allergy Unknown Verified 01/15/20 23:15 Physical Exam Vitals: Vital Signs Temp Pulse Pulse Resp BP BP BP 01/16/20 11:23 98.1 F 89 18 93/50 1105/20 07:57 98.4 F 94 18 149/78 01/16/20 01:49 97.6 F 86 16 139/84 01/16/20 01:14 99.1 F 94 18 176/83 01/16/20 00:43 86 18 161/91 01/15/20 23:53 86 18 135/86 01/15/20 23:27 89 17 141/97 01/15/20 22:31 91 18 142/101 149/101 01/15/20 21:47 98.3 F 94 20 155/90 Pulse Ox 01/16/20 11:23 92 L 01/16/20 07:57 99 01/16/20 01:49 99 01/16/20 01:14 96 01/16/20 00:43 95 01/15/20 23:53 93 L 01/15/20 23:27 96 01/15/20 22:31 96 01/15/20 21:47 96 Intake and Output 01/15/20 01/16/20 01/16/20 22:59 06:59 14:59 Intake Total 840 Output Total 5800 1974 Balance -5800 -1135 Intake: Oral 840 Output: Urine 5800 1974 Uretheral (Junior) 900 Other: Voiding Method Indwelling Catheter Indwelling Catheter Weight 77.111 kg 77.111 kg Results - Lab Results Most recent lab results Calcium 9.1 mg/dL (8.4-10.2) 01/15/20 22:25 01/15/20 22:25 01/15/20 22:25 Assessment and Plan Plan: Assessment: 1. Acute kidney injury secondary to urinary retention. Creatinine 1.96 on admission. Labs pending from today. UA benign. 2. Bilateral hydronephrosis. Currently has Junior catheter. Urology will be consulted. 3. Uncontrolled diabetes mellitus. Patient stopped taking medications about a month ago. 4. Hypertonic hyponatremia secondary to hyperglycemia. 5. Polyuria secondary to postobstructive diuresis as well as hyperglycemia. Plan: Start normal saline at 75 mL an hour. Check labs today. Maintain Junior catheter. Consult urology. Tight blood sugar control. Thank you for the consultation. I will continue to follow the patient with you during his hospital stay.
[2020-01-16] MEDS: INSULIN ASPART (NovoLOG) 100 UNIT/ML VIAL SQ SCH ×5 (12:37→21:04)
[2020-01-16] MEDS: SODIUM CHLORIDE 0.9% 1,000 ML IV SCH (12:38)
[2020-01-16 13:03] LABS: ALT 15 U/L (4-49); AST 18 U/L (17-59); African American GFR (CKD) >90 (>60 ml/min/1.73 sqM); Albumin 2.9 g/dL (3.5-5.0); Albumin/Globulin Ratio 1.1; Alkaline Phosphatase 118 U/L (38-126); Anion Gap 4 mmol/L; Blood Urea Nitrogen 16 mg/dL (9-20); Calcium 8.6 mg/dL (8.4-10.2); Carbon Dioxide 28 mmol/L (22-30); Chloride 104 mmol/L (98-107); Globulin 2.6 g/dL; Glucose 273 mg/dL (74-99); Magnesium 1.5 mg/dL (1.6-2.3); Non-African American GFR(CKD) 89 (>60 ml/min/1.73 sqM); Potassium 3.8 mmol/L (3.5-5.1); Sodium 136 mmol/L (137-145); Total Bilirubin 0.6 mg/dL (0.2-1.3); Total Protein 5.5 g/dL (6.3-8.2)
[2020-01-16] MEDS ORDERED: Magnesium Replacement Protocol 1 EACH MISC MISCELLANE PRN (13:22)
[2020-01-16] MEDS: MAGNESIUM SULFATE-D5W PMX 1 GM in DEXTROSE/WATER 1 100ML.BAG IVPB SCH ×2 (14:54→16:15)
[2020-01-16 17:02] LABS: Glucose,Whole Blood 363 mg/dL (75-99)
[2020-01-16] MEDS: traMADol 50 MG TAB PO PRN (17:19)
--- NOTE | 2020-01-16 17:37 | P.GSCN ---
History of Present Illness Consult date: 01/16/20 Reason for Consult: Urinary retention and bilateral hydronephosis History of present illness: The patient is a 55-year-old male admitted through the emergency room early this morning for evaluation of acute renal failure associated urinary retention as well as uncontrolled diabetes mellitus with hyponatremia. The patient said he had not been feeling well and had noted decreased urination for several days. He came to the emergency room due to lower abdominal and left flank pain with radiation to the left groin yeasterday evening. CT scan of the abdomen and pelvis was obtained and showed bilateral hydronephrosis with a distended bladde r. A catheter was inserted and 900 cc was drained but then the catheter was clamped. Within the next hour over 700 cc drained. Since admission the patient has produced over 5 L of fluid. BUN/creatinine prior to placement of the catheter was 24/1.96. BUN/creatinine this morning was 16/0.96. The patient's urinalysis did not suggest a urinary tract infection. His glucose at the time of admission was 589 and his sodium was 124. Bicarb was 24. Sodium this morning was improved at 136. Patient has a history of diabetes mellitus dating back 15 years. He had been taking metformin but discontinued this approximately 1 month ago. He has a history of gross hematuria which occurred in 2017. CT urogram imaged the kidneys and upper abdomen in 03/2017 and showed no hydronephrosis. Patient was seen by Dr. Rocha and underwent cystoscopy with bladder biopsy in 05/2017. 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 He does not recall seeing Dr. Rocha since that time and I do not have access to Dr. Rocha's notes at this time. The patient says he usually voids every 2-3 hours during the day and usually once at night. Prior to several days ago he had no sensations of incomplete bladder emptying. Review of Systems - Constitutional Reports fatigue, Denies chills - Cardiovascular Denies edema, Denies shortness of breath - Gastrointestinal Reports as per HPI, Reports constipation (Last bowel movement 3 days ago), Reports nausea, Denies vomiting - Genitourinary Reports as per HPI, Denies hematuria Past Medical History Past Medical History: Coronary Artery Disease (CAD), Diabetes Mellitus, Hyperlipidemia, Hypertension History of Any Multi-Drug Resistant Organisms: None Reported Past Surgical History: Orthopedic Surgery Additional Past Surgical History / Comment(s): Cystoscopy with bladder 05/2017 Past Psychological History: No Psychological Hx Reported Smoking Status: Current every day smoker Past Alcohol Use History: None Reported Past Drug Use History: None Reported Medications and Allergies Home Medications Medication Instructions Recorded Confirmed Type No Known Home Medications 01/15/20 01/15/20 History Allergies Allergy/AdvReac Type Severity Reaction Status Date / Time ketchup Allergy Unknown Verified 01/15/20 23:15 Penicillins Allergy Unknown Verified 01/15/20 23:15 Surgical - Exam Vital Signs Temp Pulse Resp BP Pulse Ox 98.3 F 94 20 155/90 96 01/15/20 21:47 01/15/20 21:47 01/15/20 21:47 01/15/20 21:47 01/15/20 21:47 - General well developed, well nourished, no distress - ENT no hearing loss - Neck no masses, no lymphadectomy - Respiratory normal respiratory effort - Abdomen Abdomen: soft, non tender, no organomegaly Hernia: none - Genitourinary normal penis with no external lesions, testicles non-tender, other (Prostate is 1-2+ enlarged and benign to palpation. No fecal impaction.) - Psychiatric memory intact Results - Labs 01/15/20 22:25 01/16/20 12:15 Abnormal Lab Results - Last 24 Hours (Table) 01/15/20 01/15/20 01/16/20 Range/Units 22:25 22:25 00:59 Sodium 128 L (137-145) mmol/L Chloride 97 L (98-107) mmol/L BUN 24 H (9-20) mg/dL Creatinine 1.96 H (0.66-1.25) mg/dL Glucose 589 H* (74-99) mg/dL POC Glucose (mg/dL) 431 H (75-99) mg/dL Magnesium (1.6-2.3) mg/dL Alkaline Phosphatase 142 H (38-126) U/L Total Protein (6.3-8.2) g/dL Albumin (3.5-5.0) g/dL Lipase 361 H (23-300) U/L Urine Glucose (UA) 4+ H (Negative) 01/16/20 01/16/20 01/16/20 Range/Units 09:49 11:48 12:15 Sodium 136 L (137-145) mmol/L Chloride (98-107) mmol/L BUN (9-20) mg/dL Creatinine (0.66-1.25) mg/dL Glucose 273 H (74-99) mg/dL POC Glucose (mg/dL) 330 H 263 H (75-99) mg/dL Magnesium 1.5 L (1.6-2.3) mg/dL Alkaline Phosphatase (38-126) U/L Total Protein 5.5 L (6.3-8.2) g/dL Albumin 2.9 L (3.5-5.0) g/dL Lipase (23-300) U/L Urine Glucose (UA) (Negative) 01/16/20 Range/Units 17:00 Sodium (137-145) mmol/L Chloride (98-107) mmol/L BUN (9-20) mg/dL Creatinine (0.66-1.25) mg/dL Glucose (74-99) mg/dL POC Glucose (mg/dL) 363 H (75-99) mg/dL Magnesium (1.6-2.3) mg/dL Alkaline Phosphatase (38-126) U/L Total Protein (6.3-8.2) g/dL Albumin (3.5-5.0) g/dL Lipase (23-300) U/L Urine Glucose (UA) (Negative) Diabetes panel 01/15/20 01/16/20 Range/Units 22:25 12:15 Sodium 128 L 136 L (137-145) mmol/L Potassium 4.6 3.8 (3.5-5.1) mmol/L Chloride 97 L 104 (98-107) mmol/L Carbon Dioxide 24 28 (22-30) mmol/L BUN 24 H 16 (9-20) mg/dL Creatinine 1.96 H 0.96 (0.66-1.25) mg/dL Glucose 589 H* 273 H (74-99) mg/dL Calcium 9.1 8.6 (8.4-10.2) mg/dL AST 20 18 (17-59) U/L ALT 18 15 (4-49) U/L Alkaline Phosphatase 142 H 118 (38-126) U/L Total Protein 6.3 5.5 L (6.3-8.2) g/dL Albumin 3.6 2.9 L (3.5-5.0) g/dL Calcium panel 01/15/20 01/16/20 Range/Units 22:25 12:15 Calcium 9.1 8.6 (8.4-10.2) mg/dL Albumin 3.6 2.9 L (3.5-5.0) g/dL Pituitary panel 01/15/20 01/16/20 Range/Units 22:25 12:15 Sodium 128 L 136 L (137-145) mmol/L Potassium 4.6 3.8 (3.5-5.1) mmol/L Chloride 97 L 104 (98-107) mmol/L Carbon Dioxide 24 28 (22-30) mmol/L BUN 24 H 16 (9-20) mg/dL Creatinine 1.96 H 0.96 (0.66-1.25) mg/dL Glucose 589 H* 273 H (74-99) mg/dL Calcium 9.1 8.6 (8.4-10.2) mg/dL Adrenal panel 01/15/20 01/16/20 Range/Units 22:25 12:15 Sodium 128 L 136 L (137-145) mmol/L Potassium 4.6 3.8 (3.5-5.1) mmol/L Chloride 97 L 104 (98-107) mmol/L Carbon Dioxide 24 28 (22-30) mmol/L BUN 24 H 16 (9-20) mg/dL Creatinine 1.96 H 0.96 (0.66-1.25) mg/dL Glucose 589 H* 273 H (74-99) mg/dL Calcium 9.1 8.6 (8.4-10.2) mg/dL Total Bilirubin 0.7 0.6 (0.2-1.3) mg/dL AST 20 18 (17-59) U/L ALT 18 15 (4-49) U/L Alkaline Phosphatase 142 H 118 (38-126) U/L Total Protein 6.3 5.5 L (6.3-8.2) g/dL Albumin 3.6 2.9 L (3.5-5.0) g/dL - Imaging CT scan - abdomen: image reviewed Assessment and Plan (1) Urinary retention Narrative/Plan: The patient's urinary retention appears to be acute and is the most likely s ource of his bilateral hydronephrosis and acute renal failure. He had a moderate diuresis following placement of the catheter which is in part related to a postobstructive diuresis and in part related to polyuria from his uncontrolled diabetes mellitus. The patient has seen Dr. Rocha previously. Once his diabetes is under better control I would suggest discharging him with the catheter in place with a follow-up appointment with Dr. Rocha next week. The patient could be instructed in catheter removal and removed the catheter morning of his appointment. He should also be started on tamsulosin 0.4 mg daily. Current Visit: Yes Status: Acute Code(s): R33.9 - RETENTION OF URINE, UNSPECIFIED SNOMED Code(s): 233527805
[2020-01-16] MEDS: TAMSULOSIN 0.4 MG CAP.ER.24H PO SCH (18:15)
[2020-01-16 20:53] LABS: Glucose,Whole Blood 165 mg/dL (75-99)
[2020-01-16] MEDS ORDERED: INSULIN DETEMIR (LEVEMIR) 100 UNIT/ML SYR SQ SCH (21:00)
--- NOTE | 2020-01-16 21:40 | P.HPIM ---
History of Present Illness H&P Date: 01/16/20 Chief Complaint: Abdominal pain Patient is a 55-year-old male with a known history of hypertension, hyperlipidemia, diabetes type 2, history of coronary disease presents to ER with complaints of difficulty with urination. Patient states that he has been having low urine output mainly dribbling without incomplete bladder emptying for the past 1 week. Junior catheter was inserted in the ER and was noted to have significant urinary retention. Otherwise patient denies any dysuria or hematuria. No fever no chills. Patient does have lower abdominal discomfort. No nausea vomiting or abdominal pain. Denies any chest pain or shortness breath. Laboratory data showed sodium 138, potassium 4.6, chloride 97, BUN 24 and creatinine 1.96 Blood sugar was [address] of the abdomen pelvis was done in the ER showed bilateral moderate hydronephrosis and hydroureter with markedly dilated urinary bladder. Hydronephrosis probably due to chronic bladder outlet obstruction. Obstruction is new compared to old exam. Review of Systems Constitutional: Patient denies any fever or chills . No generalized weakness or weight loss. Abdomen: Patient denied nausea vomiting and diarrhea . does have lower abdominal discomfort. Cardiovascular: Patient denies any chest pain or short of breath no palpitations. Respiratory: patient denied any cough or sputum production. No shortness of breath Neurologic: Patient denied any numbness or tingling headache. Musculoskeletal: Patient denies any complaints of joint swelling or deformity. Skin: Negative Psychiatric: Negative Endocrine: No heat or cold intolerance. No recent weight gain. Genitourinary: No dysuria or hematuria. unable to urinate All other 14 point ROS negative except the above Past Medical History Past Medical History: Coronary Artery Disease (CAD), Diabetes Mellitus, Hyperlipidemia, Hypertension History of Any Multi-Drug Resistant Organisms: None Reported Past Surgical History: Orthopedic Surgery Past Psychological History: No Psychological Hx Reported Smoking Status: Current every day smoker Past Alcohol Use History: None Reported Past Drug Use History: None Reported Medications and Allergies Home Medications Medication Instructions Recorded Confirmed Type No Known Home Medications 01/15/20 01/15/20 History Allergies Allergy/AdvReac Type Severity Reaction Status Date / Time ketchup Allergy Unknown Verified 01/15/20 23:15 Penicillins Allergy Unknown Verified 01/15/20 23:15 Physical Exam Vitals: Vital Signs Temp Pulse Pulse Resp BP BP BP 01/16/20 07:57 98.4 F 94 18 149/78 01/16/20 01:49 97.6 F 86 16 139/84 01/16/20 01:14 99.1 F 94 18 176/83 01/16/20 00:43 86 18 161/91 01/15/20 23:53 86 18 135/86 01/15/20 23:27 89 17 141/97 01/15/20 22:31 91 18 142/101 149/101 01/15/20 21:47 98.3 F 94 20 155/90 Pulse Ox 01/16/20 07:57 99 01/16/20 01:49 99 01/16/20 01:14 96 01/16/20 00:43 95 01/15/20 23:53 93 L 01/15/20 23:27 96 01/15/20 22:31 96 01/15/20 21:47 96 Intake and Output 01/15/20 01/16/20 01/16/20 22:59 06:59 14:59 Output Total 5800 1200 Balance -5800 -1200 Output: Urine 5800 1200 Uretheral (Junior) 900 Other: Voiding Method Indwelling Catheter Indwelling Catheter Weight 77.111 kg 77.111 kg PHYSICAL EXAMINATION: Patient is lying in the bed comfortably, no acute distress, awake alert and oriented.. HEENT: Normocephalic. Neck is supple. Pupils reactive. Nostrils clear. Oral cavity is moist. Ears reveal no drainage. Neck reveals no JVD, carotid bruits, or thyromegaly. CHEST EXAMINATION: Trachea is central. Symmetrical expansion. Lung ware clear to auscultation and percussion. CARDIAC: Normal S1, S2 with no gallops. No murmurs ABDOMEN: Soft. Bowel sounds normal. No organomegaly. No abdominal bruits. Extremities: reveal no edema. No clubbing or cyanosis Neurologically awake, alert, oriented x3 with well-coordinated movements. No focal deficits noted Skin: No rash or skin lesions. Psychiatric: Coperative. Nonsuicidal Musculoskeletal: No joint swelling or deformity. Normal range of motion. Results CBC & Chem 7: 01/15/20 22:25 01/16/20 12:15 Labs: Abnormal Lab Results - Last 24 Hours (Table) 11/04/20 11/04/20 11/05/20 Range/Units 22:25 22:25 00:59 Sodium 128 L (137-145) mmol/L Chloride 97 L (98-107) mmol/L BUN 24 H (9-20) mg/dL Creatinine 1.96 H (0.66-1.25) mg/dL Glucose 589 H* (74-99) mg/dL POC Glucose (mg/dL) 431 H (75-99) mg/dL Alkaline Phosphatase 142 H (38-126) U/L Lipase 361 H (23-300) U/L Urine Glucose (UA) 4+ H (Negative) 01/16/20 Range/Units 09:49 Sodium (137-145) mmol/L Chloride (98-107) mmol/L BUN (9-20) mg/dL Creatinine (0.66-1.25) mg/dL Glucose (74-99) mg/dL POC Glucose (mg/dL) 330 H (75-99) mg/dL Alkaline Phosphatase (38-126) U/L Lipase (23-300) U/L Urine Glucose (UA) (Negative) Thrombosis Risk Factor Assmnt - DVT/VTE Prophylaxis DVT/VTE Prophylaxis: Pharmacologic Prophylaxis ordered - Choose All That Apply Each Factor Represents 1 point: Age 41-60 years Thrombosis Risk Factor Assessment Total Risk Factor Score: 1 Thrombosis Risk Factor Assessment Level: Low Risk Assessment and Plan Assessment: Acute bladder outlet obstruction with urinary retention Bilateral hydronephrosis Acute kidney injury secondary to urinary retention with creatinine level 1.96 on admission Hyperglycemia with uncontrolled diabetes type 2 [id number] Hypovolemic hyponatremia/pseudohyponatremia due to hyperglycemia Hypertension Hyperlipidemia Currently everyday smoker DVT prophylaxis with heparin subcu Plan: Patient has been continue IV hydration. Patient is currently having postobstructive diuresis. Monitor renal function closely. Nephrology is on board and urology was consulted due to bladder outlet obstruction. Patient will be started on Levemir and prandial insulin dose along with sliding scale. A1c level was ordered. Currently current management and further recommendations based on clinical course. Time with Patient: Greater than 30
[2020-01-16] MEDS ORDERED: MAGNESIUM SULFATE-D5W PMX 1 GM in DEXTROSE/WATER 1 100ML.BAG IVPB SCH (21:45)
[2020-01-17] MEDS: HEPARIN SODIUM,PORCINE 5,000 UNIT/ML 1 ML VIAL SQ SCH ×2 (00:01→07:44)
[2020-01-17] MEDS: traMADol 50 MG TAB PO PRN ×2 (00:05→07:53)
[2020-01-17] MEDS: SODIUM CHLORIDE 0.9% 1,000 ML IV SCH ×2 (00:07→13:43)
[2020-01-17 05:46] VITALS: BP 101/66; PULSE 78; RESP 16; TEMP 97.9
[2020-01-17 07:13] LABS: Glucose,Whole Blood 166 mg/dL (75-99)
[2020-01-17] MEDS: TAMSULOSIN 0.4 MG CAP.ER.24H PO SCH (07:44)
[2020-01-17] MEDS: INSULIN ASPART (NovoLOG) 100 UNIT/ML VIAL SQ SCH ×4 (07:44→12:59)
[2020-01-17] MEDS: NICOTINE 21MG/24HR PATCH TRANSDERM SCH (07:45)
[2020-01-17 09:23] LABS: African American GFR (CKD) 110.3 (60.0-200.0); Anion Gap 6.9 mmol/L (4.00-12.00); BUN/Creat Ratio 13.33 Ratio (12.00-20.00); Calcium 8.2 mg/dL (8.7-10.3); Carbon Dioxide 27.1 mmol/L (21.6-31.8); Magnesium 1.5 mg/dL (1.5-2.4); Non-African American GFR(CKD) 95.1 (60.0-200.0); Potassium 3.7 mmol/L (3.5-5.5)
--- NOTE | 2020-01-17 10:32 | P.PN ---
Subjective Patient is seen in follow-up for acute kidney injury. GFR back to baseline. He has a Junior catheter for urinary retention. Oral intake is good. No vomiting or diarrhea. No chest pain or shortness of breath. He is maintained on normal saline at 75 mL an hour. Vital signs are stable. General: The patient appeared well nourished and normally developed. HEENT: Head exam is unremarkable. Neck is without jugular venous distension. LUNGS: Breath sounds decreased. HEART: Rate and Rhythm are regular. ABDOMEN: Soft, nontender. EXTREMITITES: No clubbing, cyanosis, or edema. Objective - Vital Signs Vital signs: Vital Signs Temp 97.9 F 01/17/20 05:15 Pulse 78 01/17/20 05:15 Resp 16 01/17/20 05:15 BP 101/66 01/17/20 05:15 Pulse Ox 95 01/17/20 05:15 Intake & Output 01/16/20 01/17/20 01/17/20 18:59 06:59 18:59 Intake Total 2565 Output Total 4875 2600 400 Balance -2310 -2600 -400 Intake: Intake, IV Titration 225 Amount Sodium Chloride 0.9% 1, 225 000 ml @ 75 mls/hr IV . [id number] [facility] Rx#:[id number] Oral 2340 Output: Urine 4875 2600 400 Other: Voiding Method Indwelling Catheter Indwelling Catheter Indwelling Catheter - Labs CBC & Chem 7: 01/15/20 22:25 01/17/20 03:55 Labs: Abnormal Lab Results - Last 24 Hours (Table) 01/16/20 01/16/20 01/16/20 Range/Units 11:48 12:15 17:00 Sodium 136 L (137-145) mmol/L Glucose 273 H (74-99) mg/dL POC Glucose (mg/dL) 263 H 363 H (75-99) mg/dL Calcium (8.7-10.3) mg/dL Magnesium 1.5 L (1.6-2.3) mg/dL Total Protein 5.5 L (6.3-8.2) g/dL Albumin 2.9 L (3.5-5.0) g/dL 01/16/20 01/17/20 01/17/20 Range/Units 20:52 03:55 07:11 Sodium (137-145) mmol/L Glucose 133 H (74-99) mg/dL POC Glucose (mg/dL) 165 H 166 H (75-99) mg/dL Calcium 8.2 L (8.7-10.3) mg/dL Magnesium (1.6-2.3) mg/dL Total Protein (6.3-8.2) g/dL Albumin (3.5-5.0) g/dL Assessment and Plan Plan: Assessment: 1. Acute kidney injury secondary to urinary retention. Creatinine 1.96 on admission - 0.9 today. UA benign. 2. Bilateral hydronephrosis. Currently has Junior catheter. Urology following. 3. Uncontrolled diabetes mellitus. Patient stopped taking medications about a month ago. Blood sugars better controlled today. 4. Hypertonic hyponatremia secondary to hyperglycemia. Resolved. 5. Polyuria secondary to postobstructive diuresis as well as hyperglycemia. 6. Hypomagnesemia from poor intake. Plan: Maintain saline at 75 mL an hour. Replace magnesium. 2 g IV today. Maintain Junior catheter. Tight blood sugar control. Check urine osmolality.
[2020-01-17] MEDS: MAGNESIUM SULFATE-D5W PMX 1 GM in DEXTROSE/WATER 1 100ML.BAG IVPB SCH ×2 (11:28→12:57)
[2020-01-17 11:41] LABS: Glucose,Whole Blood 297 mg/dL (75-99)
--- NOTE | 2020-01-17 12:15 | P.DS ---
Providers Date of admission: 01/16/20 01:19 Attending physician: Eyal Dobbins Consults: 01/16/20 01:20 Consult Physician Routine Consulting Provider: Kandi Mracial Consult Reason/Comments: acute kidney injury Do you want consulting provider notified?: Yes 01/16/20 11:29 Consult Physician Routine Consulting Provider: Landen Rocha Consult Reason/Comments: hydronephrosis, Do you want consulting provider notified?: Yes Primary care physician: Stated None Hospital Course: 55-year-old male with a known history of hypertension, hyperlipidemia, diabetes type 2, history of coronary disease presents to ER with complaints of difficulty with urination. Patient states that he has been having low urine output mainly dribbling without incomplete bladder emptying for the past 1 week. Junior catheter was inserted in the ER and was noted to have significant urinary retention. Otherwise patient denies any dysuria or hematuria. No fever no chills. Patient does have lower abdominal discomfort. No nausea vomiting or abdominal pain. Denies any chest pain or shortness breath. Laboratory data showed sodium 138, potassium 4.6, chloride 97, BUN 24 and creatinine 1.96 Blood sugar was [address] of the abdomen pelvis was done in the ER showed bilateral moderate hydronephrosis and hydroureter with markedly dilated urinary bladder. Hydronephrosis probably due to chronic bladder outlet obstruction. Obstruction is new compared to old exam. 01/17/2020 Patient was evaluated by urology and nephrology. It was believed that patient's acute renal failure is secondary to obstructive uropathy along with some dehydration from hyperglycemia. Serum creatinine improved.the patient is noncompliant with his medications although he agreed to take insulin patient will be provided with prescription for insulin as well as glucometer. Patient was referred to PCP. Patient is a requesting something for his severe anxiety patient will be given prescription for SSRI along with the to 3 days of benzod iazepine as needed for anxiety after providing counseling regarding benzodiazepine use. Patient blood sugars are well controlled at this time. Patient was only has a Junior catheter urology will make a determination whether he will go home with the Junior catheter or not. PHYSICAL EXAMINATION: GENERAL: The patient is alert and oriented x3, not in any acute distress. Well developed, well nourished. HEENT: Pupils are round and equally reacting to light. EOMI. No scleral icterus. No conjunctival pallor. Normocephalic, atraumatic. No pharyngeal erythema. No thyromegaly. CARDIOVASCULAR: S1 and S2 present. No murmurs, rubs, or gallops. PULMONARY: Chest is clear to auscultation, no wheezing or crackles. ABDOMEN: Soft, nontender, nondistended, normoactive bowel sounds. No palpable organomegaly. MUSCULOSKELETAL: No joint swelling or deformity. EXTREMITIES: No cyanosis, clubbing, or pedal edema. NEUROLOGICAL: Gross neurological examination did not reveal any focal deficits. SKIN: No rashes. Assessment and Plan Assessment: Acute bladder outlet obstruction with urinary retention -acute renal failure: Secondary to obstructive uropathy as well as dehydration improved now present creatinine 0.9 Bilateral hydronephrosis Hyperglycemia with uncontrolled diabetes type 2 [id number] Hypovolemic hyponatremia and pseudohyponatremia due to hyperglycemia Hyperlipidemia Currently everyday smoker: Counseling was provided Patient Condition at Discharge: Fair Plan - Discharge Summary New Discharge Prescriptions: New DULoxetine HCL [Cymbalta] 60 mg PO DAILY #30 cap Tamsulosin [Flomax] 0.4 mg PO DAILY #30 cap.er.24h Insulin Glargine,Hum.rec.anlog [Lantus Solostar] 15 unit SQ DAILY #5 pen INSULIN ASPART (NovoLOG) [NovoLOG (formulary)] 5 unit SQ AC-TID #5 vial ALPRAZolam [Xanax] 0.25 mg PO BID PRN 3 Days #6 tab PRN Reason: Anxiety Discharge Medication List ALPRAZolam [Xanax] 0.25 mg PO BID PRN 3 Days #6 tab 01/17/20 [Rx] DULoxetine HCL [Cymbalta] 60 mg PO DAILY #30 cap 01/17/20 [Rx] INSULIN ASPART (NovoLOG) [NovoLOG (formulary)] 5 unit SQ AC-TID #5 vial 01/17/20 [Rx] Insulin Glargine,Hum.rec.anlog [Lantus Solostar] 15 unit SQ DAILY #5 pen 01/17/20 [Rx] Tamsulosin [Flomax] 0.4 mg PO DAILY #30 cap.er.24h 01/17/20 [Rx] Follow up Appointment(s)/Referral(s): Nadira Ellsworth MD [REFERRING] - 3 Days Janes Gtz DO [STAFF PHYSICIAN] - 1 Week Landen Rocha MD [STAFF PHYSICIAN] - 01/23/20 7:00 am (Pull the catheter at Midnight the night before appointment) Patient Instructions/Handouts: *[facility] - Junior Catheter Instructions, Junior Catheter Placement and Care (DC), Urinary Leg Bag (GEN), Junior Catheter Removal (DC) Discharge Disposition: HOME SELF-CARE
[2020-01-17 12:58] LABS: Hemoglobin A1C 16.2 % (4.0-6.0)
[2020-01-17] MEDS ORDERED: DOCUSATE 100 MG CAP PO STA (13:09)
[2020-01-17] MEDS ORDERED: SENNOSIDES 8.6 MG TAB PO SCH (13:15)
== END 2020-01-17 14:39 | disposition home or self-care (01) | DRG 699 ==
LOC: EC 21:46 → 5NMEDONC 01-16 01:19
PROVIDERS: ADMIT Hospitalist; ATTEND Hospitalist
DX: N32.0 Bladder-neck obstruction (principal); N17.9 Acute kidney failure, unspecified; N13.30 Unspecified hydronephrosis; R33.8 Other retention of urine; E11.65 Type 2 diabetes mellitus with hyperglycemia; E78.5 Hyperlipidemia, unspecified; E83.42 Hypomagnesemia; E86.0 Dehydration; E86.1 Hypovolemia; F17.200 Nicotine dependence, unspecified, uncomplicated; F41.9 Anxiety disorder, unspecified; I10 Essential (primary) hypertension; I25.10 Atherosclerotic heart disease of native coronary artery without angina pectoris; I25.2 Old myocardial infarction; Z79.4 Long term (current) use of insulin; Z79.899 Other long term (current) drug therapy; Z91.14 Patient's other noncompliance with medication regimen; Z88.0 Allergy status to penicillin; Z91.018 Allergy to other foods; Z98.890 Other specified postprocedural states; Z87.448 Personal history of other diseases of urinary system
CPT/HCPCS: 36415; 74176; 80048; 80053; 81003; 82150; 83036; 83605; 83690; 83735; 83935; 84484; 85025; 96361; 96374; 96376; 99285

== ENCOUNTER 2020-02-14 05:47 | Emergency (ER) | payer OTHER ==
[2020-02-14 05:57] VITALS: BP 127/86; PULSE 106; RESP 18; TEMP 99.1
[2020-02-14] MEDS ORDERED: LIDOCAINE URO-JET JELLY 2% 5 ML KIT URETHRAL ONE (05:58)
[2020-02-14 06:24] LABS: Appearance,Urine Clear (Clear); Bilirubin,Urine Negative (Negative); Blood,Urine Small (Negative); Color,Urine Colorless; Glucose,Urine (UA) 4+ (Negative); Ketones,Urine Negative (Negative); Leukocyte Esterase,Urine Moderate (Negative); Mucus,Urine Rare /hpf; Nitrite,Urine Negative (Negative); PH, Urine 6.5 (5.0-8.0); Protein,Urine Negative (Negative); RBC,Urine 1 /hpf (0-5); Specific Gravity,Urine 1.004 (1.001-1.035); Urobilinogen,Urine <2.0 mg/dL (<2.0); WBC,Urine 52 /hpf (0-5)
--- NOTE | 2020-02-14 06:26 | ED ---
Male Urogenital HPI - General Chief complaint: Urogenital Stated complaint: Urine Retention Time Seen by Provider: 02/14/20 05:56 Source: patient, EMS, RN notes reviewed Mode of arrival: EMS Limitations: no limitations - History of Present Illness Initial comments: 55-year-old male presents emergency Department with chief complaint of urinary retention. Patient states that he's had this recurrent over the last month. Patient states she was hospitalized initially he has followed up weekly with Dr. Barrett they have attempted to remove the catheter 3 times and every time he has have a Junior replaced. Patient states that it fell out on Monday and states that overnight he was unable to urinate states that he cannot tolerate the pressure. Patient to emergency room at this time no fevers chills no flank pain no chest pain or shortness breath. Patient has appointment with urology and nephrology. - Related Data Previous Rx's Medication Instructions Recorded ALPRAZolam [Xanax] 0.25 mg PO BID PRN 3 Days #6 tab 01/17/20 DULoxetine HCL [Cymbalta] 60 mg PO DAILY #30 cap 01/17/20 INSULIN ASPART (NovoLOG) [NovoLOG 5 unit SQ AC-TID #5 vial 01/17/20 (formulary)] Insulin Glargine,Hum.rec.anlog 15 unit SQ DAILY #5 pen 01/17/20 [Lantus Solostar] Magnesium Oxide 400 mg PO DAILY #30 tablet 01/17/20 Tamsulosin [Flomax] 0.4 mg PO DAILY #30 cap.er.24h 02/14/20 Allergies Allergy/AdvReac Type Severity Reaction Status Date / Time ketchup Allergy Unknown Verified 02/14/20 05:57 Penicillins Allergy Unknown Verified 02/14/20 05:57 Review of Systems ROS Statement: Those systems with pertinent positive or pertinent negative responses have been documented in the HPI. ROS Other: All systems not noted in ROS Statement are negative. Past Medical History Past Medical History: Coronary Artery Disease (CAD), Diabetes Mellitus, Hyperlipidemia, Hypertension, Myocardial Infarction (non Q-wave) Additional Past Medical History / Comment(s): enlarged prostate History of Any Multi-Drug Resistant Organisms: None Reported Past Surgical History: Orthopedic Surgery Additional Past Surgical History / Comment(s): Cystoscopy with bladder 05/2017 Past Psychological History: No Psychological Hx Reported Smoking Status: Current every day smoker Past Alcohol Use History: None Reported Past Drug Use History: None Reported General Exam Limitations: no limitations General appearance: alert, in no apparent distress Head exam: Present: atraumatic, normocephalic, normal inspection Eye exam: Present: normal appearance, PERRL, EOMI. Absent: scleral icterus, conjunctival injection, periorbital swelling ENT exam: Present: normal exam, normal oropharynx, mucous membranes moist Neck exam: Present: normal inspection, full ROM. Absent: tenderness, meningismus, lymphadenopathy Respiratory exam: Present: normal lung sounds bilaterally. Absent: respiratory distress, wheezes, rales, rhonchi, stridor Cardiovascular Exam: Present: regular rate, normal rhythm, normal heart sounds. Absent: systolic murmur, diastolic murmur, rubs, gallop, clicks GI/Abdominal exam: Present: soft, normal bowel sounds. Absent: distended, tenderness, guarding, rebound, rigid Back exam: Absent: CVA tenderness (R), CVA tenderness (L) Skin exam: Present: warm, dry, intact, normal color. Absent: rash Course Vital Signs 02/14/20 05:50 Temperature 99.1 F Pulse Rate 106 H Respiratory 18 Rate Blood Pressure 127/86 O2 Sat by Pulse 94 L Oximetry Medical Decision Making - Medical Decision Making Catheter was placed, 1400ml of urine drained patient feels improved. Patient has follow-up with urology for catheter will be kept in place. Return parameters were discussed. Disposition Clinical Impression: Urinary retention Disposition: HOME SELF-CARE Condition: Stable Instructions (If sedation given, give patient instructions): Urinary Retention in Men (ED) Additional Instructions: Please return to the Emergency Department if symptoms worsen or any other concerns. Prescriptions: Tamsulosin [Flomax] 0.4 mg PO DAILY #30 cap.er.24h Is patient prescribed a controlled substance at d/c from ED?: No Referrals: Nadira Ellsworth MD [Primary Care Provider] - 1-2 days Landen Rocha MD [STAFF PHYSICIAN] - 1-2 days Time of Disposition: 06:26
== END 2020-02-14 06:56 | disposition home or self-care (01) ==
LOC: EC 05:47
DX: R33.9 Retention of urine, unspecified (principal); I25.2 Old myocardial infarction; F17.200 Nicotine dependence, unspecified, uncomplicated; Z88.0 Allergy status to penicillin; Z91.018 Allergy to other foods
CPT/HCPCS: 51702; 81001; 87086; 99284

== ENCOUNTER → 2020-02-19 | Outpatient (CLI) | payer OTHER | END | disposition home or self-care (01) | LOC: LABWHC1 16:04 | PROVIDERS: ATTEND Urology | DX: N40.1 Benign prostatic hyperplasia with lower urinary tract symptoms (principal); R33.9 Retention of urine, unspecified | CPT/HCPCS: 36415; 84153 ==